=== PATIENT | male | born 1990 | race African-American/Black ===

== ENCOUNTER 2017-12-01 22:41 | Emergency (ER) | payer MEDICAID, OTHER ==
[~2017-12-01] VITALS: Ht 180.3 cm; Wt 80.0 kg
[2017-12-01] MEDS ORDERED: SODIUM CHLORIDE 0.9% 1,000 ML IV ONE (22:58)
[2017-12-01 23:28] LABS: BASOPHILS % 0.6 % (0.0-2.0); EOSINOPHILS % 2.8 % (0.0-5.0); HEMATOCRIT. 39.4 % (42.0-52.0); HEMOGLOBIN. 13.3 g/dL (14.0-18.0); LYMPHOCYTES % 31.8 % (20.0-50.0); MEAN CORPUSCULAR HEMOGLOBIN 28.7 pg (28.0-32.0); MEAN PLATELET VOLUME 8.6 fl (7.4-10.4); MONOCYTES % 7.9 % (2.0-8.0); NEUTROPHILS % 56.9 % (40.0-76.0); PLATELET 204 x1000/uL (130-400); RED BLOOD CELL COUNT 4.63 mill/uL (4.7-6.1); RED CELL DISTRIBUTION WIDTH 12.9 % (11.6-14.6)
[2017-12-01 23:39] LABS: CARBON DIOXIDE 25 mEq/L (21-32); CHLORIDE 104 mEq/L (98-107); TROPONIN I < 0.02 ng/mL (0.00-0.04)
[2017-12-02] MEDS ORDERED: POTASSIUM CHLORIDE 20MEQ TABLET SR PO ONE
[2017-12-02 00:47] VITALS: BP 127/68
== END 2017-12-02 00:51 | disposition home or self-care (01) ==
LOC: ER 22:46
DX: R55 Syncope and collapse (principal); E87.6 Hypokalemia; R32 Unspecified urinary incontinence; F12.90 Cannabis use, unspecified, uncomplicated; F17.200 Nicotine dependence, unspecified, uncomplicated
CPT/HCPCS: 36415; 70450; 80048; 84484; 85025; 93005; 96360; 99285; J7030; Z7610